=== PATIENT | female | born 2000 ===

== ENCOUNTER 2022-01-29 08:38 | Inpatient (IN) | payer OTHER, SELFPAY ==
--- OUTSIDE RECORDS SUMMARY | 2022-01-29 08:41 | XMS_ITS | Continuity of Care Document ---
:1999 Author Organization [facility] Address [address] [place] [address]- Care Team Providers Name Role Phone Micah Colón MD Primary Care Physician Encounter [place] Date(s): 10/29/21 - 11/28/21 [facility] [address] [place], [place] [address] Attending Physician: Hari Martinez Admitting Physician: Hari Martinez Referring Physician: AdmtrHari Allergies, Adverse Reactions, Alerts No Known Allergies Immunizations Given and Recorded Vaccine Date Status Refusal Reason Human Papillomavirus Vaccine 07/06/15 Given Human Papillomavirus Vaccine 06/08/13 Given Human Papillomavirus Vaccine 12/08/11 Given Hepatitis A Pediatric Vaccine 07/06/15 Given Varicella Virus Vaccine 09/18/10 Given Varicella Virus Vaccine 07/26/00 Given Meningococcal Conjugate Vaccine 09/18/10 Given tetanus/diphtheria/pertussis, acel(Tdap) 09/18/10 Given Measles/Mumps/Rubella Virus Vaccine 09/04/04 Given Measles/Mumps/Rubella Virus Vaccine 07/26/00 Given Poliovirus Vaccine, Inactivated 07/27/03 Given Poliovirus Vaccine, Inactivated 07/26/00 Given Poliovirus Vaccine, Inactivated 99 Given Poliovirus Vaccine, Inactivated 99 Given Diphth/Tet/Pertussis, Acel (oldterm) 07/27/03 Given Diphth/Tet/Pertussis, Acel (oldterm) 08/25/00 Given Diphth/Tet/Pertussis, Acel (oldterm) 01/06/00 Given Diphth/Tet/Pertussis, Acel (oldterm) 99 Given Diphth/Tet/Pertussis, Acel (oldterm) 99 Given Pneumococcal Conjugate (PCV7) (oldterm) 08/25/00 Given Pneumococcal Conjugate (PCV7) (oldterm) 07/26/00 Given Pneumococcal Conjugate (PCV7) (oldterm) 01/06/00 Given Haemophilus B Conj Vaccine (oldterm) 08/25/00 Given Haemophilus B Conj Vaccine (oldterm) 01/06/00 Given Haemophilus B Conj Vaccine (oldterm) 99 Given Haemophilus B Conj Vaccine (oldterm) 99 Given Hepatitis B Vaccine (old term) 01/06/00 Given Hepatitis B Vaccine (old term) 99 Given Hepatitis B Vaccine (old term) 99 Given Medications Colace sodium 100 mg oral capsule 100 mg, 1, capsule, By Mouth, 2 times a day, PRN, # 28 capsule, Refills 0, Tot. Refills 0, Maintenance, for constipation, 03/30/19 7:10:34 EST, Print Requisition Start Date: 03/30/19 Stop Date: 04/13/19 Status: OrderedDiflucan 150 mg oral tablet See Instructions, 1 tablet By Mouth now, then repeat in 5 days if symptoms persist, # 2 tablet, 0 Refills, Maintenance, 10/29/21 18:32:00 EDT, Tablet, [facility]/pharmacy #[id number], Partial fill upon patient request if the prescription is for a schedule II opioi... Start Date: 10/29/21 Status: OrderedraNITIdine 75 mg oral tablet 1 tablet = 75 mg, By Mouth, 3 times a day, PRN as needed for dyspepsia, # 50 tablet, 0 Refills, SoftStop, 03/30/19 7:10:44 EST, Tablet Start Date: 03/30/19 Stop Date: 04/13/19 Status: OrderedRitalin LA By Mouth, Daily in AM, 0 Refills, Maintenance, 07/04/13 15:41:39 Start Date: 07/04/13 Status: OrderedtraZODone 50 mg oral tablet 50 mg, 1, tablet, By Mouth, 3 times a day, Refills 0, Maintenance, 07/06/15 9:08:34 Start Date: 07/06/15 Status: Ordered Problem List Condition Effective Dates Status Health Status Informant ADHD (attention deficit hyperactivity Active disorder)(Confirmed)1 Irregular menses(Confirmed) Active Obesity(Confirmed) Active 1[facility] there Social History Social History Type Response Smoking Status Never smoker; Tobacco user i n household: No entered on: 06/29/14 Sex
--- OUTSIDE RECORDS SUMMARY | 2022-01-29 08:41 | XMS_ITS ---
:1999 Author Name No, PCP Care Team Providers Name Role Phone No, PCP Unavailable Unavailable PROBLEMS Unknown Problems ALLERGIES No Information ENCOUNTERS Encounter Location Date Diagnosis [facility] [address] [facility] Dec, [place], [place] [phone] [facility] [facility] [address] [facility] Dec, [place] [phone] [facility] [address] [place] [address] Dec, [facility] [place] [phone] [facility] [address] [place] [address] Dec, [facility] [place] [place] [phone] [facility] [address] [facility] Oct, [place], [place] [phone] [facility] [address] [facility] Oct, [place], [place] [phone] [facility] [address] [facility] Oct, [place] [phone] [facility] [address] [facility] Oct, [place] [phone] [facility] [address] [facility] Oct, [place] [phone] [facility] [address] [facility] Oct, [place] [phone] [facility] [address] [place] [address] 2nd Floor Oct, [place], [place] [phone] [facility] [employer] [facility] [employer] [facility] [address] [facility] Oct, [place], [place] [phone] [facility] [address] [place], [place] Sep, [address] [facility] [employer] [facility] [employer] [address] [facility] Sep, [place], [place] [phone] [facility] [address] [place] [address] 2nd Floor Sep, [place], [place] [phone] [facility] [facility] [address] [place] [address] Sep, [place], [place] [phone] [facility] [address] [place] [address] Sep, [place], [place] [phone] [facility] [address] [place] [address] Sep, [place], [place] [phone] [facility] [address] [place], [place] Sep, [address] IMMUNIZATIONS No Known Immunizations SOCIAL HISTORY Never Assessed REASON FOR REFERRAL Reason RCT 30 Referral Organization [facility] Referring Provider First Name Les Referring Provider Last Name Janelle Referring Provider Specialty Dental Superintendent Tests Referring Provider Referring Provider email [email or web address] Referred Provider [facility],[place] FUNCTIONAL STATUS PLAN OF CARE Activity Details Referral RCT 30, [place] [facility] VITAL SIGNS Blood pressure systolic 112 2021-10-24 Blood pressure diastolic 56 2021-10-24 MEDICATIONS Medication Instructions Dosage Frequency Start End Date Duration Stat us Date amoxicillin 500 orally 3 times a 1 cap(s) 8h Sep, day (s) Active mg day 2021 PROCEDURES Procedure Date Ordered Result Body Site Comprehensive Oral Evaluation, New or Established October 17, 2021 CASE PRSATION DTL&EXT TX PLANNING October 24, 2021 Prophylaxis-Adult October 24, 2021 CASE PRSATION DTL&EXT TX PLANNING October 17, 2021 Intraoral- Complete, Includes Bitewings October 17, 2021 RESULTS No Results REASON FOR VISIT Insurance Providers [facility] Member Patient Patient Patient Patient Patient Subscriber Subscriber Subscriber Group Insurance Plan Plan Plan Plan ID Relationship Address Phone Name Date of ID Name Date of No Type Insurance Insurance Insurance Coverage to Subscriber Address Phone Name Dates Scion CCA Scion [phone] Scion self Awilda [id number] [facility] [address] [facility] [address]
--- OUTSIDE RECORDS SUMMARY | 2022-01-29 08:41 | XMS_ITS | Continuity of Care Document ---
:1999 Author Organization [facility] Address [address] [place] [address]- Care Team Providers Name Role Phone Pamela Mina MD Primary Care Physician En[place] [facility] [place](s): 05/08/21 - 05/09/[address] [address]- Discharge Disposition: A-D/C Home Attending Physician: Nelsy Vences DO Admitting Physician: Nelsy Vences DO Referring Physician: Not on Staff, Referring MD Allergies, Adverse Reactions, Alerts No Known Allergies [...] Start Date: 03/30/19 Stop Date: 04/13/19 Status: OrderedraNITIdine 75 mg oral tablet 1 [...] [facility] and [facility] there Vital Signs Most recent to oldest 1 2 3 [Reference Range]: Oxygen Saturation [94-100 %] 98 % 98 % 95 % (05/09/21 7:02 AM) (05/09/21 3:33 AM) (05/09/21 1:2 9 AM) Pulse Rate [55-90 bpm] 76 bpm 80 bpm 97 bpm (05/09/21 7:02 AM) (05/09/21 3:33 AM) *H* (05/09/21 1:29 AM ) Blood Pressure [90-138/55-84 140/100 mm Hg 126/79 mm Hg 96/ 62 mm Hg mm Hg] *H* (05/09/21 3:33 AM) (05/09/21 1:29 AM) (05/09/21 7:02 AM) Respiratory Rate [16-30 16 br/min 18 br/min br/min] (05/09/21 7:02 AM) (05/08/21 11:58 PM) Temperature [96.8-100.4 DegF] 98.4 DegF 98.5 DegF 98 .5 DegF (05/09/21 3:33 AM) (05/09/21 1:29 AM) (05/09/21 1:2 2 AM) Mode of Delivery (Oxygen) Room air Room air Room a ir (05/09/21 7:02 AM) (05/09/21 3:33 AM) (05/09/21 1:2 9 AM) Blood pressure sites Arm, left Arm, right Arm, left (05/09/21 7:02 AM) (05/09/21 3:33 AM) (05/09/21 1:2 9 AM) Temperature Route Oral Oral Oral (05/09/21 3:33 AM) (05/09/21 1:29 AM) (05/09/21 1:2 2 AM) Social History Social History Type Response Smoking Status Never smoker; Tobacco user i n household: No entered on: 06/29/14 Sex
--- OUTSIDE RECORDS SUMMARY | 2022-01-29 08:41 | XMS_ITS | Continuity of Care Document ---
:1999 Author Organization [facility] Address [address] [place] [address]- Care Team Providers Name Role Phone Micah Colón MD Primary Care Physician Encounter [facility] [place] Date(s): 10/29/21 - 11/05/21 [facility] [address] [place] [address]- Encounter Diagnosis Tinea cruris (Discharge Diagnosis) - 10/29/21 Vaginitis (Discharge Diagnosis) - 10/29/21 Screen for STD (sexually transmitted disease) (Discharge Diagnosis) - 10/29/21 Attending Physician: Tony Boyer DO Referring Physician: Micah Colón MD Allergies, Adverse Reactions, Alerts No Known [...] B Vaccine (old term) 99 Given Medications clotrimazole 1% topical cream 1 application, Topically, 2 times a day, # 60 Gm, 0 Refills, Acute 11/14/21 18:33:00 EDT, 10/29/21 18:33:00 EDT, Cream, [facility]/pharmacy #[id number], Partial fill upon patient request if the prescription is for a schedule II opioid drug., 1 application Topicall... Start Date: 10/29/21 Stop Date: 11/14/21 Status: OrderedColace sodium 100 mg oral capsule 100 mg, [...] 0 Refills, Maintenance, 10/29/21 18:32:00 EDT, Tablet, [facility]/pharmacy #[id number], Partial fill upon patient request if the [...] [facility] and [facility] there Diagnosis Diagnosis Type Effective Dates Health Clinical Infor mant Status Service Tinea cruris Discharge 10/29/21 Diagnosis Vaginitis Discharge 10/29/21 Diagnosis Screen for STD Discharge 10/29/21 (sexually Diagnosis transmitted disease) Vital Signs Most recent to oldest [Reference Range]: 1 Height 152 cm (10/29/21 6:17 PM) Oxygen Saturation [94-100 %] 100 % (10/29/21 6:17 PM) Pulse Rate [55-90 bpm] 68 bpm (10/29/21 6:17 PM) Blood Pressure [90-138/55-84 mm Hg] 142/78 mm Hg *H* (10/29/21 6:17 PM) Respiratory Rate [16-30 br/min] 18 br/min (10/29/21 6:17 PM) Temperature [96.8-100.4 DegF] 97.2 DegF (10/29/21 6:17 PM) Mode of Delivery (Oxygen) Room air (10/29/21 6:17 PM) Blood pressure sites Arm, right (10/29/21 6:17 PM) Temperature Route Temporal (10/29/21 6:17 PM) Social History Social History Type Response Smoking Status Never smoker; Tobacco user i n household: No entered on: 06/29/14 Sex
--- OUTSIDE RECORDS SUMMARY | 2022-01-29 08:41 | XMS_ITS | Continuity of Care Document ---
:1999 Author Organization [facility] Address [address] [place] [address]- Care Team Providers Name Role Phone Micah Colón MD Primary Care Physician [place] [facility] [place] 11[place]29/21 [facility] [address] [place], [place] [address] Attending Physician: Not on Staff, Attending MD Allergies, Adverse Reactions, Alerts No Known [...] 0 Refills, Maintenance, 10/29/21 18:32:00 EDT, Tablet, [facility]/pharmacy #[id number], Partial fill upon patient request if the [...]
--- OUTSIDE RECORDS SUMMARY | 2022-01-29 08:42 | XMS_ITS ---
:1999 Author Name No, PCP Care Team Providers Name Role Phone No, PCP Unavailable Unavailable PROBLEMS Unknown Problems ALLERGIES No Information ENCOUNTERS Encounter Location Date Diagnosis [facility] [address] [facility] Dec, [place], [place] [phone] [facility] [address] [facility] Dec, [place], [place] [phone] [facility] [address] [place] [address] Dec, [facility] [place] [place] [phone] [facility] [address] [place] [address] Dec, [facility] [place] [place] [phone] [facility] [address] [facility] Oct, [place], [place] [phone] [facility] [address] [facility] Oct, [place], [place] [phone] [facility] [address] [facility] Oct, [place] [phone] [facility] [address] [facility] Oct, [place] [phone] [facility] [address] [facility] Oct, [place] [phone] [facility] [address] [facility] Oct, [place] [phone] [facility] [address] [place] [address] 2nd Floor Oct, [place], [place] [phone] [facility] [address] [facility] Oct, [place], [place] [phone] [facility] [address] [place], [place] Sep, [address] [facility] [address] [facility] Sep, [place], [place] [phone] [facility] [address] [place] [address] 2nd Floor Sep, [place], [place] [phone] [facility] [address] [place] [address] Sep, [place] [phone] [facility] [address] [place] [address] Sep, [place], [place] [phone] [facility] [employer] [facility] [address] [place] [address] Sep, [place], [place] [phone] [facility] [address] [place], [place] Sep, [address] IMMUNIZATIONS No Known Immunizations SOCIAL HISTORY Never Assessed REASON FOR REFERRAL Reason RCT 30 Referral Organization [facility] Referring Provider First Name Les Referring Provider Last Name Janelle Referring Provider Specialty Dental Research Electrician Referring Provider Referring Provider email [email or web address] Referred Provider [facility],[place] FUNCTIONAL STATUS PLAN OF CARE Activity Details Referral RCT 30, [facility] VITAL SIGNS Blood pressure systolic 112 [...] REASON FOR VISIT Insurance Providers [facility] Member Patient Patient Patient Patient Patient Subscriber Subscriber Subscriber Group Insurance Plan Plan Plan Plan ID Relationship Address Phone Name Date of ID Name Date of No Type Insurance Insurance Insurance Coverage to Subscriber Address Phone Name Dates Scion CCA Scion [phone] Scion self Awilda [id number] [facility] [address] [facility] [address]
[2022-01-29 08:50] VITALS: BP 128/85; PULSE 106; RESP 17; TEMP 36.6; O2SAT 96
[2022-01-29 09:41] VITALS: BMI 33.5
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
[2022-01-29] MEDS: Milk of Magnesia 30 ML ORAL.SUSP PO (14:18)
[2022-01-29] MEDS: Acetaminophen 325 MG TABLET 650 MG PO (14:21)
--- NOTE | 2022-01-29 14:53 | MHC.CLN ---
NUTRITION VISITED WITH PATIENT DUE TO REPORTED 20# WEIGHT LOSS. PATIENT REPORTS THAT SHE HAS BEEN HOMELESS SINCE JULY. WOULD LIKE ENSURE CLEAR BID. PROVIDES ADDITIONAL 480 KCALS, 16 G PROTEIN. DISLIKES MACARONI SALAD AND IS LACTOSE INTOLERANT. THIS DELI MANAGER ALERTED GSR TO SAME. REPORTS THAT CURRENTLY EATING WELL.
--- NOTE | 2022-01-29 20:35 | P.CONHOSP_ITS ---
History of Present Illness Data of Consult Service Date: 01/29/22 Requesting physician: Candace Lora Primary Care Provider: None Physician HPI Reason for consult: medical h&p 21 year old female with history of anemia (unclear type but endorses heavy menses), prediabetes, depression/anxiety, and insomnia admitted to psychiatry. Patient states that she has lost 20 pounds over the last few months but reports significant depression. She has been drinking ensure to help with appetite. Also reports discomfort in the LLQ that is chronic ongoing for months, states this is not pain, feels like a bubble. Has normal daily bowel movement. No melena or hematochezia. Has not changed in quality or severity. No fevers or chills. Review of Systems Review of Systems: General: +weight loss. No fevers, malaise Cardiovascular: No chest pain, palpitations, or leg edema Respiratory: No shortness of breath, wheezing, cough GI: +LLQ discomfort. No abdominal pain, nausea, vomiting, diarrhea, constipation, melena, hematochezia Neuro: No headaches, weakness, paresthesias Psych: +depression/anxiety Skin: No rashes or lesions [facility] Medical History Anemia Anxiety Depression Prediabetes Family History Paternal Grandmother CAD (coronary artery disease) Stroke Father Diabetes Mother Osteoarthritis Social History Household Members: None Housing: Homeless Do you presently have visiting nurse or other home services: No Patient Tobacco Use Status: Never used Tobacco Use of substances other than those prescribed or required for medical reasons: No Substance Use Type: Marijuana Substance Use Frequency: Occasionally Last Used Substance: Days (ago) Last Used Substance Other:: Thursday 01/25 Currently Displaying Signs/Symptoms of Drug Intoxication Withdrawal: No Any prior treatment program specific to substance use: No Have you been hit, kicked, punched, or otherwise hurt by someone within the past year? If so, by whom?: No Do you feel safe in your current relationship?: No Current Relationship Is there a partner from a previous relationship who is making you feel unsafe now?: No Are you made to feel afraid or neglected: No Advance Directives: No Do you have a plan to hurt others: No Plan Recently lost weight without trying: Yes How much weight loss: 14-23 pounds Eating poorly because of decreased appetite: No Nutrition screen score: 4 Nutrition Risks: No Nutritional Risk Patient : No : No Poor oral hygiene: No Meds Allergies Allergy/AdvReac Type Severity Reaction Status Date / Time No Known Allergies Allergy Verified 01/29/22 09:42 Active Medications: Current Medications Acetaminophen (Acetaminophen 325 Mg Tablet) 650 mg PO Q6H PRN PRN Reason: Headache/Pain Mild Scale (1-3) Last Admin: 01/29/22 14:21 Dose: 650 mg Al Hydroxide/Mg Hydroxide (Magnesium Hydrox/Alum Hydrox 30 Ml Oral.Susp) 30 ml PO Q6H PRN PRN Reason: Heartburn/Nausea Hydroxyzine HCl (Hydroxyzine Hcl 25 Mg Tablet) 25 mg PO Q6H PRN PRN Reason: Anxiety Magnesium Hydroxide (Milk Of Magnesia 30 Ml Oral.Susp) 30 ml PO DAILY PRN PRN Reason: Constipation Last Admin: 01/29/22 14:18 Dose: 30 ml Trazodone HCl (Trazodone Hcl 100 Mg Tablet) 100 mg PO BEDTIME PRN PRN Reason: Insomnia Physical Exam Vital Signs and Narrative: Vital Signs: Last Vital Signs Temp 97.8 F 01/29/22 08:50 Pulse 106 H 01/29/22 08:50 Resp 17 01/29/22 08:50 BP 128/85 01/29/22 08:50 Pulse Ox 96 01/29/22 08:50 O2 Del Method 01/29/22 08:50 BMI result Body Mass Index 33.5 Constitutional - Awake and Alert, No apparent distress Eyes - PERRLA, EOMI Cardiovascular - S1S2, RRR, No edema Respiratory - Normal lung expansion, Normal respiratory effort, No respiratory distress, CTA bilaterally Gastrointestinal - NT / ND; +BS; No rebound or guarding Extremities - no calf tenderness bilaterally, no swelling Skin - Warm/Dry Neurological - Alert & oriented x3, CN II-XII intact Psychological - Appropriate affect Assessment and Plan (1) Depression: Status: Acute Plan 21 year old female with history of anemia (unclear type but endorses heavy menses), prediabetes, depression/anxiety, and insomnia admitted to psychiatry 1- depression/anxiety -plan per psychiatry 2- Anemia- unspecified type -most likely iron deficiency secondary to menorrhagia -CBC and iron studies ordered -Replete iron if indicated -Follow up with pcp/manager gyn 3-Prediabetes -A1c ordered 4-Chronic abdominal discomfort -unclear etiology. Has been present for months with benign abdominal exam. No constipation or diarrhea -Follow up with pcp Will make recommendations based on results, otherwise signing off at this time. Thank you for allowing me to participate in this consult. Please do not hesitate to call for further questions.
[2022-01-29] MEDS: traZODone HCL 100 MG TABLET PO ×2 (20:41→21:30)
[2022-01-29 20:45] VITALS: BP 133/85; PULSE 89; TEMP 36.6; O2SAT 97
[2022-01-29 20:58] LABS: MANUAL DIFF FLAG NO
[2022-01-29 21:09] LABS: Basophils Percent Auto 0.6 % (0-2); Eosinophils Percent Auto 0.5 % (0-4); Hematocrit 37.6 % (37.0-47.0); Hemoglobin 12.6 g/dl (12.0-16.0); Imm Gran Abs Auto 0.01 X10*3/uL (0.00-0.03); Imm Gran Pct Auto 0.2 % (0.0-0.4); Lymphocytes Absolute Auto 2.4 X10*3/uL (1.2-4.9); Lymphocytes Percent Auto 37.8 % (20-40); Mean Corpuscular HGB Conc 33.5 g/dl (31.0-35.0); Mean Corpuscular Hemoglobin 29.3 pg (27.0-33.0); Mean Corpuscular Volume 87.4 fL (80.0-98.0); Mean Platelet Volume 10.1 fL (9.4-12.3); Monocytes Absolute Auto 0.5 X10*3/uL (0.1-1.2); Monocytes Percent Auto 7.3 % (2-11); Neutrophils Absolute Auto 3.4 x10*3/uL (2.0-8.3); Neutrophils Percent Auto 53.6 % (45-73); Platelet Count 256 X10*3/uL (160-400); Red Cell Distribution Width 12.6 % (11.0-16.0); White Blood Count 6.3 X10*3/uL (4.8-10.8)
[2022-01-29 21:17] LABS: Iron 34 mcg/dL (30-160); Percent Iron Saturation 8 % (15-50); Total Iron Binding Capacity 414 mcg/dL (228-428); Unsaturated Iron Binding 380 ug/dL
[2022-01-29 21:38] LABS: TSH reflex Free T4 0.97 uIU/mL (0.32-4.0)
[2022-01-30 07:00] VITALS: BMI 33.4
[2022-01-30 07:39] LABS: Estimated Average Glucose 117 mg/dL; Hemoglobin A1c % 5.7 %
[2022-01-30 09:14] LABS: Estimated Average Glucose 114 mg/dL; Hemoglobin A1c % 5.6 %
--- NOTE | 2022-01-30 09:22 | HO.PSYCHPN ---
Subjective Subjective Date of Service: 01/30/22 Reason For Visit: Depression, SI Subjective Notes: Conditional Voluntary Interim History: Pt continues to denied SI/HI. She denies VH/AH. She does not appear internally preoccupied. She reports sleeping well with trazodone. She declines any other medications. No behavioral concerns. She reports she can stay with friend or cousin. Medication Compliance: Yes Side effects from medications: No Attending Groups: Yes Review of Systems Review of Systems General: +weight loss. No fevers, malaise Cardiovascular: No chest pain, palpitations, or leg edema Respiratory: No shortness of breath, wheezing, cough GI: +LLQ discomfort. No abdominal pain, nausea, vomiting, diarrhea, constipation, melena, hematochezia Neuro: No headaches, weakness, paresthesias Psych: +depression/anxiety Skin: No rashes or lesions Yes all other systems are reviewed and are negative Mental Status Exam Mental Status Exam Narrative: Appearance: casually groomed, fair hygiene in NAD Behavior:superficially cooperative, provocative comments of self harm psychomotor: no agitation or retardation Speech:clear, normal rate/rhythm/volume, spontaneous Thought process: linear Thought content:no signs of psychosis or delusion, future oriented, Mood: fine Affect: congruent SI:none HI:none VH/AH:none Delusions:none Insight/judgment:poor x 2. Memory/cog: alert, oriented x 3. Diagnostics Vital Signs (24Hr): Vital Signs - 24 hr 01/30/22 09:30 01/30/22 20:32 Temperature 97.4 F 97.6 F Pulse Rate 93 81 Respiratory Rate 18 18 Blood Pressure 104/57 L 138/69 Pulse Oximetry 97 100 Oxygen Delivery Method Room Air Room Air BMI result Body Mass Index 33.4 Labs Results: 01/29/22 20:49 01/30/22 08:04 Labs: Laboratory Results - last 48 hr 01/29/22 01/29/22 01/29/22 20:49 20:49 20:49 WBC 6.3 RBC 4.30 Hgb 12.6 Hct 37.6 MCV 87.4 MCH 29.3 MCHC 33.5 RDW 12.6 Plt Count 256 MPV 10.1 Immature Gran % (Auto) 0.2 Neut % (Auto) 53.6 Lymph % (Auto) 37.8 [place] % (Auto) 7.3 Eos % (Auto) 0.5 Baso % (Auto) 0.6 Lymph # (Auto) 2.4 [place] # (Auto) 0.5 Eos # (Auto) 0.0 Baso # (Auto) 0.0 Abs Immat Gran (auto) 0.01 Absolute Neuts (auto) 3.4 Absolute Nucleated RBC 0.000 Nucleated RBC % (auto) 0.0 Sodium Potassium Chloride Carbon Dioxide Anion Gap BUN Creatinine Estim Creat Clear Calc Estimated GFR Fasting Glucose Estimat Average Glucose 117 Hemoglobin A1c % 5.7 Calcium Iron 34 TIBC 414 % Saturation 8 L Unsat Iron Binding 380 Total Bilirubin AST ALT Alkaline Phosphatase Total Protein Albumin Triglycerides Cholesterol LDL Cholesterol, Calc HDL Cholesterol Vitamin B12 Folate TSH 01/29/22 01/30/22 01/30/22 20:49 08:04 08:04 WBC RBC Hgb Hct MCV MCH MCHC RDW Plt Count MPV Immature Gran % (Auto) Neut % (Auto) Lymph % (Auto) [place] % (Auto) Eos % (Auto) Baso % (Auto) Lymph # (Auto) [place] # (Auto) Eos # (Auto) Baso # (Auto) Abs Immat Gran (auto) Absolute Neuts (auto) Absolute Nucleated RBC Nucleated RBC % (auto) Sodium 137 Potassium 4.3 Chloride 101 Carbon Dioxide 27 Anion Gap 13 BUN 10 Creatinine 0.71 Estim Creat Clear Calc 109.8 Estimated GFR > 60 Fasting Glucose 88 Estimat Average Glucose 114 Hemoglobin A1c % 5.6 Calcium 9.1 Iron TIBC % Saturation Unsat Iron Binding Total Bilirubin 0.5 AST 18 ALT 13 Alkaline Phosphatase 69 Total Protein 7.0 Albumin 4.1 Triglycerides 55 Cholesterol 126 LDL Cholesterol, Calc 74 HDL Cholesterol 41 Vitamin B12 Folate TSH 0.97 0.43 01/30/22 08:04 WBC RBC Hgb Hct MCV MCH MCHC RDW Plt Count MPV Immature Gran % (Auto) Neut % (Auto) Lymph % (Auto) [place] % (Auto) Eos % (Auto) Baso % (Auto) Lymph # (Auto) [place] # (Auto) Eos # (Auto) Baso # (Auto) Abs Immat Gran (auto) Absolute Neuts (auto) Absolute Nucleated RBC Nucleated RBC % (auto) Sodium Potassium Chloride Carbon Dioxide Anion Gap BUN Creatinine Estim Creat Clear Calc Estimated GFR Fasting Glucose Estimat Average Glucose Hemoglobin A1c % Calcium Iron TIBC % Saturation Unsat Iron Binding Total Bilirubin AST ALT Alkaline Phosphatase Total Protein Albumin Triglycerides Cholesterol LDL Cholesterol, Calc HDL Cholesterol Vitamin B12 750 Folate 16.5 TSH Medications Medications Current Medications Acetaminophen (Acetaminophen 325 Mg Tablet) 650 mg PO Q6H PRN PRN Reason: Headache/Pain Mild Scale (1-3) Last Admin: 01/31/22 07:40 Dose: 650 mg Al Hydroxide/Mg Hydroxide (Magnesium Hydrox/Alum Hydrox 30 Ml Oral.Susp) 30 ml PO Q6H PRN PRN Reason: Heartburn/Nausea Last Admin: 01/30/22 19:12 Dose: 30 ml Hydroxyzine HCl (Hydroxyzine Hcl 25 Mg Tablet) 25 mg PO Q6H PRN PRN Reason: Anxiety Magnesium Hydroxide (Milk Of Magnesia 30 Ml Oral.Susp) 30 ml PO DAILY PRN PRN Reason: Constipation Last Admin: 01/29/22 14:18 Dose: 30 ml Omeprazole (Omeprazole 20 Mg Capsule.Dr) 20 mg PO BID@0630,1630 SUSIE Last Admin: 01/31/22 07:26 Dose: 20 mg Trazodone HCl (Trazodone Hcl 100 Mg Tablet) 100 mg PO BEDTIME PRN PRN Reason: Insomnia Last Admin: 01/30/22 20:32 Dose: 100 mg Allergies Allergies Allergy/AdvReac Type Severity Reaction Status Date / Time No Known Allergies Allergy Verified 01/29/22 09:42 Assessment & Plan Assessment & Plan (1) Mood disorder: Status: Acute Code(s): F39 - Unspecified mood [affective] disorder Plan Ms. Cole is 21 year-old with hx of MDD, brought in on section 12b asked by father who reported pt appeared paranoid. In the Ed utox is negative. Pt does not appear internally preoccupied or with delusions. Whether information of mother having affair with her ex is truthful or not, it is not due to underlying psychotic disorder. I do suspect more [place] 2 pathology. We discussed risks, benefits and alternative treatment options. PLAN 1. admit to [facility], cv 15 min 2. obtain collateral infor 3. pt declines medications. 01/30 continue current meds I spent minutes with the patient and/or on the patient floor today, greater than?50% of which was spent counseling/coordinating care. Reason for contiued inpatient stay Substantial Risk for: stable for discharge
[2022-01-30 09:30] VITALS: BP 104/57; PULSE 93; RESP 18; TEMP 36.3; O2SAT 97
[2022-01-30 09:32] LABS: Alanine Aminotransferase 13 U/L (0-31); Albumin Level 4.1 g/dL (3.5-5.0); Alkaline Phosphatase 69 U/L (39-117); Anion Gap 13 (12-20); Aspartate Amino Transferase 18 U/L (5-31); Bilirubin Total 0.5 mg/dL (0.0-1.0); Blood Urea Nitrogen 10 mg/dL (9-16); Calcium 9.1 mg/dL (8.4-10.2); Carbon Dioxide 27 mmol/L (22-29); Chloride 101 mmol/L (96-108); Cholesterol 126 mg/dL; Creatinine Clr Calc Pharmacy 109.8; Estimated Glomerular Filt Rate > 60; Glucose Fasting 88 mg/dL (60-99); HDL Cholesterol 41 mg/dL; LDL Cholesterol Calculated 74 mg/dl; Potassium 4.3 mmol/L (3.3-5.1); Sodium 137 mmol/L (135-145); Triglycerides 55 mg/dL
[2022-01-30 09:53] LABS: Thyroid Stimulating Hormone 0.43 uIU/mL (0.32-4.0)
[2022-01-30 10:08] LABS: Folate 16.5 ng/mL (> or = 4.0); Vitamin B12 750 pg/mL (200-900)
--- NOTE | 2022-01-30 12:43 | PC.NURSE ---
Patient refused flu vaccine.
[2022-01-30] MEDS: Acetaminophen 325 MG TABLET 650 MG PO (14:08)
--- NOTE | 2022-01-30 16:38 | PC.NURSE ---
Patient signed 3 day note.
[2022-01-30] MEDS: Magnesium Hydrox/Alum Hydrox 30 ML ORAL.SUSP PO (19:12)
[2022-01-30 20:32] VITALS: BP 138/69; PULSE 81; RESP 18; TEMP 36.4; O2SAT 100
[2022-01-30] MEDS: traZODone HCL 100 MG TABLET PO (20:32)
[2022-01-31] MEDS: Omeprazole 20 MG CAPSULE.DR PO (07:26)
[2022-01-31] MEDS: Acetaminophen 325 MG TABLET 650 MG PO (07:40)
[2022-01-31 08:00] VITALS: BP 119/66; PULSE 73; RESP 16; TEMP 36.6; O2SAT 99
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
--- NOTE | 2022-01-31 13:33 | PC.NURSE ---
Laura is alert, fully oriented, pleasant and cooperative with discharge plan. She denies ideation, plan or intent to harm self or others. She reports plan to go to [place] following discharge. She reports a plan to attend her follow up therapy appointment. She denies having a pcp. She reports 3/10 left ankle pain. She denies other physical complaint.
== END 2022-01-31 13:56 | disposition home health service (06) | DRG 885 ==
PROVIDERS: Physician Assistant; Admitting Provider Psychiatry & Neurology Psychiatry; Visit Provider Social Worker
DX: F39 Unspecified mood [affective] disorder (principal); R45.851 Suicidal ideations; Z59.02 Unsheltered homelessness; D64.9 Anemia, unspecified; R73.03 Prediabetes; Z79.899 Other long term (current) drug therapy
CPT/HCPCS: 36415; 80053; 80061; 82607; 82746; 83036; 83540; 84443; 85025